=== PATIENT | female | born 1940 | race Caucasian/White ===

== ENCOUNTER 2024-09-10 13:06 | Outpatient (AMB) | payer MEDICARE, SELFPAY ==
--- NOTE | 2024-09-10 13:14 | A.OFFPC_ITS ---
Vital Signs 09/10/24 13:23 Height 5 ft 4.17 in Weight 145 lb 2 oz BMI 24.8 BP 128/80 Blood Pressure Location Lt brachial Respiration 14 Pulse 94 Pulse Source Pulse Oximeter Pulse Oximetry (%) 97 Oxygen Delivery Method Room Air Intake Visit Reasons: MEDICAL BILLER/CODER // Establish Care Intake Note: New patient visit Stack Matcher Required: No Allergies No Known Allergies Allergy (Verified 09/10/24 13:17) Tobacco use date assessed: 09/10/24 Last assessed Fall Risk: 09/10/24 Dental Screening Dental Screen Date: 09/10/24 Did you have a dental visit in the last 12 months?: Yes Did you have a dental problem in the last 6 months where you did not have access to dental care?: No Was dental information given to patient?: Patient has dentist HPI HPI Comments History of Present Illness Details The patient is an 84 year old female with a past medical history of OA of bilateral knees, elevated BP, history of cataracts presenting to establish [facility]. Transferring from [facility] Goes to bed about 930/10. Sleeps 7-9 hours. Usually getting up around 2pm to urinate. She tells me that it is a fairly voluminous urine and then she has to urinate again around 6 or 7am. She stops drinking at 5pm. Denies h/o dysuria. Did wake up with slight urinary discomfort yesterday morning-more of an urgency than pain OA: Stable on tylenol prn No longer doing mammo, colonoscopy ROS CONSTITUTIONAL: Denies weight loss, fever and chills. HEENT: Denies changes in vision and hearing. RESPIRATORY: Denies SOB and cough. CV: Denies palpitations and CP GI: Denies abdominal pain, nausea, vomiting and diarrhea. : Denies dysuria and urinary frequency. MSK: Denies new myalgia and joint pain. SKIN: Denies rash and pruritus. NEUROLOGICAL: Denies headache PSYCHIATRIC: Denies recent changes in mood. PHYSICAL EXAM: GENERAL: Alert and oriented x 3. NAD EYES: EOMI. Anicteric. HENT: Moist mucous membranes. No scleral icterus. No cervical lymphadenopathy. LUNGS: Clear to auscultation bilaterally. CARDIOVASCULAR: Regular rate and rhythm. + murmur. PVCs No JVD. ABDOMEN: Soft, non-tender +bs EXTREMITIES: No edema. Non-tender. SKIN: No rashes or lesions. Warm. NEUROLOGIC: No focal neurological deficits. CN II-XII grossly intact PSYCHIATRIC: Cooperative. Appropriate mood and affect [facility] Surgical History No pertinent past surgical history Family History Mother HTN (hypertension) Brother Obesity Diabetes Social History [facility]: [facility] Patient Tobacco Use Status: Former Tobacco user Years Smoked: unknown e-Cigarette/Vaping Use: Never Used Second Hand Smoke Exposure: No service: No Current occupational status: retired Cognitive needs: No Hearing needs: Yes (Some hearing loss) Vision needs: No Questionnaire PHQ-9 Over the last 2 weeks, how often have you been bothered by any of the following problems? 1. Little interest or pleasure in doing things: not at all 2. Feeling down, depressed, or hopeless: not at all 3. Trouble falling or staying asleep, or sleeping too much: not at all 4. Feeling tired or having little energy: not at all 5. Poor appetite or overeating: not at all 6. Feeling bad about yourself - or that you are a failure or have let yourself or your family down: not at all 7. Trouble concentrating on things, such as reading the newspaper or watching television: not at all 8. Moving or speaking so slowly that other people could have noticed. Or the opposite - being so fidgety or restless that you have been moving around a lot more than usual: not at all 9. Thoughts that you would be better off or of hurting yourself in some way: not at all Total score: 0 Depression Screening Interpretation: Negative Depression Screening Done: Yes 35986 - PHQ-9 Billing: Yes Source: Developed by Drs. Tony Chavez, Xiomara Castillo, Gerhard Brand and colleagues, with an educational pablo from [employer]. Thrive Questionnaire Date Thrive assessed: 09/03/24 I am a: Patient What is your living situation today?: I have a steady place to live Within the past 12 months, did the food you bought not last and you didn't have the money to get more?: Never true Within the past 12 months, did you worry whether your food would run out before you got money to buy more?: Never true Do you have trouble paying for medicines?: No Do you have trouble getting transportation to medical appointments?: No Do you have trouble paying your heating and electricity bill?: No Do you have trouble taking care of your child, family member or friend?: No Do you have trouble with day-to-day activities such as bathing, preparing meals, shopping, managing finances, etc.?: No Are you currently unemployed and looking for a job?: No Are you interested in more education?: Yes Please select the resources that you would like help with: None Currently or been in a relationship where the following occur: No concerns reported THRIVE Score: 0 AUDIT C Alcohol Use Questionnaire (AUDIT-C) 1. How often do you have a drink containing alcohol?: Never 2. How many drinks containing alcohol do you have on a typical day when you are drinking?: 1 or 2 3. How often do you have six or more drinks on one occasion?: Never Total Score: 0 GUS-7 AMB Questionnaire GUS-7 Feeling nervous, anxious, or on edge: 0 = Not at all Not being able to stop or control worryin = Not at all Worrying too much about different things: 0 = Not at all Trouble relaxin = Not at all Being so restless that it is hard to sit still: 0 = Not at all Becoming easily annoyed or irritable: 0 = Not at all Feeling afraid as if something awful might happen: 0 = Not at all Total GUS-7 score (0-4 normal; 5-9 mild; 10-14 moderate; 15-21 severe): 0 Source: Developed by Drs. Tony Chavez, Xiomara Castillo, Gerhard Brand and colleagues, with an educational pablo from [employer]. Physical exam (Primary Care) Vital Signs: Last Vital Signs Pulse 94 09/10/24 13:23 Resp 14 09/10/24 13:23 BP 128/80 09/10/24 13:23 Pulse Ox 97 09/10/24 13:23 Oxygen Delivery Method Room Air 09/10/24 13:23 BMI result Body Mass Index 24.8 Tobacco/Smoking Status: Tobacco use Status Tobacco use date assessed 09/10/24 09/10/24 13:23 Patient Tobacco Use Status Former Tobacco user 09/10/24 13:23 e-Cigarette/Vaping Use Never Used 09/10/24 13:23 PHQ-9: PHQ-9 Score PHQ-9: Total score 0 09/10/24 13:31 Depression Screening Interpretation: Negative Thrive Assessment: Date of Thrive Assessment Date Thrive assessed 09/03/24 09/10/24 13:23 Currently or been in a relationship where the following occur: No concerns reported Coding Level of Care Code New Pt Level 5 (22942) Complex EM visit Add On G2211 Diagnoses Encounter to establish care Z76.89 Heart murmur R01.1 Overactive bladder N32.81 Additional Codes PHQ-9 - 11968 - PHQ-9 Billing: Yes ([id number]) Time Spent (min) 70 Assessment & Plan Assessment & Plan (1) Encounter to establish care: Code(s): Z76.89 - Persons encountering health services in other specified circumstances Category: Medical Plan: 84 y/o to establish care. Past medical, surgical, social and family history reviewed. (2) Heart murmur: Code(s): R01.1 - Cardiac murmur, unspecified Category: Medical Plan: New per patient. Baseline echo ordered EKG performed-PACs No cardiac symptoms (3) Overactive bladder: Code(s): N32.81 - Overactive bladder Category: Medical Plan: Trial myrbetriq. consider urogynecology. For new urgency-UA/UC Orders: Orders Complete Blood Count Auto Diff 09/10/24 N32.81 - Overactive bladder, Z13.0 - Encounter for screening for diseases of the blood and blood-forming organs and certain disorders involving the immune mechanism, Z13.220 - Encounter for scree shaji for lipoid disorders, Z13.228 - Encounter for screening for other metabolic disorders Comprehensive Met. Panel 09/10/24 N32.81 - Overactive bladder, Z13.0 - Encounter for screening for diseases of the blood and blood-forming organs and certain disorders involving the immune mechanism, Z13.220 - Encounter for screening for lipoid disorders, Z13.228 - Encounter for screening for other metabolic disorders CA echo transthoracic complete 09/10/24 R01.1 - Cardiac murmur, unspecified UA CC w/rflx Micro + Cult 09/10/24 N32.81 - Overactive bladder, Z13.0 - Encounter for screening for diseases of the blood and blood-forming organs and certain disorders involving the immune mechanism, Z13.220 - Encounter for screening for lipoid disorders, Z13.228 - Encounter for screening for other metabolic disorders Lipid Panel 09/10/24 N32.81 - Overactive bladder, Z13.0 - Encounter for screening for diseases of the blood and blood-forming organs and certain disorders involving the immune mechanism, Z13.220 - Encounter for screening for lipoid disorders, Z13.228 - Encounter for screening for other metabolic disorders Hemoglobin A1c 09/10/24 N32.81 - Overactive bladder, Z13.0 - Encounter for screening for diseases of the blood and blood-forming organs and certain di sorders involving the immune mechanism, Z13.220 - Encounter for screening for lipoid disorders, Z13.228 - Encounter for screening for other metabolic disorders Medications: New Myrbetriq ER (mirabegron) 25 mg PO DAILY 90 tabs 3RF NS
[2024-09-10 13:23] VITALS: BP 128/80; PULSE 94; RESP 14; O2SAT 97; BMI 24.8
== END 2024-09-10 14:38 | disposition home or self-care (01) ==
PROVIDERS: PCP Internal Medicine; Visit Provider Internal Medicine
DX: R01.1 Cardiac murmur, unspecified (principal); N32.81 Overactive bladder; Z76.89 Persons encountering health services in other specified circumstances

== ENCOUNTER 2024-09-10 14:43 | Outpatient (REF) | payer MEDICARE, SELFPAY ==
[2024-09-10 17:49] LABS: MANUAL DIFF FLAG NO
[2024-09-10 17:50] LABS: Appearance Urine Cloudy; Color Urine Yellow; Glucose Urine UA Negative (Negative); Leukocyte Esterase Urine Moderate (2+) (Negative); Nitrite Urine Negative (Negative); PH 5.5 (5.0-9.0); UMIC TRIGGER UACC YES; Urine Blood Large (3+) (Negative); Urine Ketones Trace mg/dL (Negative); Urine Protein 30 (1+) mg/dL (Neg-Trace)
[2024-09-10 17:56] LABS: Bacteria Urine None Seen (None Seen); Hyaline Casts Urine 0-2 /LPF (0-2); RBC Urine >20 /HPF (0-2); Squamous Epithelial Cell Urine 0-2 /HPF (0-2); UACC Culture Trigger YES; WBC Urine >50 /HPF (0-5)
[2024-09-10 18:06] LABS: Basophils Absolute Auto 0.1 X10*3/uL (0.0-0.2); Basophils Percent Auto 0.6 % (0-2); Eosinophils Absolute Auto 0.1 X10*3/uL (0.0-0.4); Eosinophils Percent Auto 0.8 % (0-4); Hematocrit 38.4 % (37.0-47.0); Hemoglobin 13.1 g/dl (12.0-16.0); Imm Gran Abs Auto 0.03 X10*3/uL (0.00-0.03); Imm Gran Pct Auto 0.3 % (0.0-0.4); Lymphocytes Absolute Auto 1.1 X10*3/uL (1.2-4.9); Lymphocytes Percent Auto 10.1 % (20-40); Mean Corpuscular HGB Conc 34.1 g/dl (31.0-35.0); Mean Corpuscular Hemoglobin 31.4 pg (27.0-33.0); Mean Corpuscular Volume 92.1 fL (80.0-98.0); Mean Platelet Volume 11.7 fL (9.4-12.3); Monocytes Absolute Auto 0.5 X10*3/uL (0.1-1.2); Monocytes Percent Auto 5.1 % (2-11); Neutrophils Absolute Auto 8.6 x10*3/uL (2.0-8.3); Neutrophils Percent Auto 83.1 % (45-73); Platelet Count 275 X10*3/uL (160-400); Red Blood Count 4.17 X10*6/uL (4.20-5.50); Red Cell Distribution Width 14.4 % (11.0-16.0); White Blood Count 10.4 X10*3/uL (4.8-10.8)
[2024-09-10 18:19] LABS: Estimated Average Glucose 105 mg/dL; Hemoglobin A1C 117.0805 umol/L; Hemoglobin A1c % 5.3 % (<6.0); Total Hemoglobin (HGBA1C) 3453.3481 umol/L
[2024-09-10 18:20] LABS: Alanine Aminotransferase 38 U/L (0-31); Albumin Level 4.2 g/dL (3.5-5.0); Alkaline Phosphatase 96 U/L (39-117); Anion Gap 17 (12-20); Aspartate Amino Transferase 53 U/L (5-31); Bilirubin Total 0.7 mg/dL (0.0-1.0); Blood Urea Nitrogen 22 mg/dL (9-16); Calcium 9.5 mg/dL (8.4-10.2); Carbon Dioxide 25 mmol/L (22-29); Chloride 98 mmol/L (96-108); Cholesterol 191 mg/dL (<200); Estimated Glomerular Filt Rate 55; Glucose Random 95 mg/dL (60-115); HDL Cholesterol 83 mg/dL (>40); LDL Cholesterol Calculated 87 mg/dL (<100); Potassium 4.7 mmol/L (3.3-5.1); Sodium 135 mmol/L (135-145); Total Protein 7.9 g/dL (6.5-8.0); Triglycerides 108 mg/dL (<150)
== END 2024-09-10 14:44 | disposition home or self-care (01) ==
LOC: HO.WFDLDS 14:43
PROVIDERS: Visit Provider Internal Medicine
DX: Z13.228 Encounter for screening for other metabolic disorders (principal); Z13.0 Encounter for screening for diseases of the blood and blood-forming organs and certain disorders involving the immune mechanism; Z13.220 Encounter for screening for lipoid disorders; N32.81 Overactive bladder; Z13.1 Encounter for screening for diabetes mellitus
CPT/HCPCS: 36415; 80053; 80061; 81001; 83036; 85025; 87086; 96127; 99202

== ENCOUNTER 2024-09-16 11:42 | Outpatient (AMB) | payer MEDICARE, SELFPAY ==
--- NOTE | 2024-09-16 12:01 | A.OFFPC_ITS ---
Intake Visit Reasons: discuss results and ekg Allergies No Known Allergies Allergy (Verified 09/10/24 13:17) Tobacco use date assessed: 09/10/24 Dental Screening Dental Screen Date: 09/10/24 HPI HPI Comments History of Present Illness Details The patient is an 84 year old female with a past medical history of OA of bilateral knees, elevated BP, history of cataracts presenting to [facility]. Transferring from [facility] Goes to bed about 930/10. Sleeps 7-9 hours. Usually getting up around 2pm to urinate. She tells me that it is a fairly voluminous urine and then she has to urinate again around 6 or 7am. She stops drinking at 5pm. Denies h/o dysuria. Did wake up with slight urinary discomfort yesterday morning-more of an urgency than pain. Patient was prescribed trial myrbetriq but decided she did not want to try it. Her ua was +for blood. She has been referred to urology. Urine culture was negative. She had a murmur on exam. She has echocardiogram ordered. She had EKG in the office for ?afib but was PACs OA: Stable on tylenol prn No longer doing mammo, colonoscopy ROS see HPI PHYSICAL EXAM: telehealth [facility] Surgical History No pertinent past surgical history Family History Mother HTN (hypertension) Brother Obesity Diabetes Social History Housing: Condominium Patient Tobacco Use Status: Former Tobacco user Years Smoked: unknown e-Cigarette/Vaping Use: Never Used Second Hand Smoke Exposure: No service: No Current occupational status: retired Cognitive needs: No Hearing needs: Yes (Some hearing loss) Vision needs: No Questionnaire Thrive Questionnaire Date Thrive assessed: 09/03/24 Physical exam (Primary Care) Tobacco/Smoking Status: Tobacco use Status Tobacco use date assessed 09/10/24 09/10/24 13:23 Patient Tobacco Use Status Former Tobacco user 09/10/24 13:23 e-Cigarette/Vaping Use Never Used 09/10/24 13:23 Thrive Assessment: Date of Thrive Assessment Date Thrive assessed 09/03/24 09/10/24 13:23 Telehealth Telehealth Telehealth Platform: [facility] Location of provider rendering services: practice address Location of patient: address on file Patient Identification confirmed using: Name, : Yes Telehealth method: voice only Patient verbally consented to treatment: Yes Patient verbally consented to billing insurance company: Yes Patient informed of any privacy concerns related to visit: Yes Minutes spent on Phone/Video with Pt.: 32 Coding Level of Care Code Tele Est Pt Level 4 (14944) Diagnoses Heart murmur R01.1 Microscopic hematuria R31.29 Assessment & Plan Assessment & Plan (1) Heart murmur: Code(s): R01.1 - Cardiac murmur, unspecified Category: Medical Plan: Echocardiogram pending. No cardiac symptoms (2) Microscopic hematuria: Code(s): R31.29 - Other microscopic hematuria Category: Medical Plan: referral to urology pending
== END 2024-09-16 13:25 | disposition home or self-care (01) ==
LOC: HO.HMCFM 11:42
PROVIDERS: PCP Internal Medicine; Visit Provider Internal Medicine
DX: R01.1 Cardiac murmur, unspecified (principal); R31.29 Other microscopic hematuria

== ENCOUNTER → 2024-09-16 11:42 | Outpatient (BNVA) | payer MEDICARE, SELFPAY | PROVIDERS: PCP Internal Medicine; Visit Provider Internal Medicine ==

== ENCOUNTER → 2024-10-02 10:52 | Outpatient (REF) | payer MEDICARE, SELFPAY ==
--- NOTE | 2024-10-02 10:57 | CA_ITS ---
Transthoracic Echocardiogram Patient (Last, First, Middle): Leah Esteban R Gender: Female Date of : 1940 Age: 84 Procedure Date: 10/02/2024 Procedure Type: Transthoracic Echocardiogram Location: OP Height: 162.56 cm Weight: 62.14 kg BSA: 1.67 m2 Heart Rate: bpm BP: 170 / 110 mmHg Machine Operator Packaging: TO Referring MD: Faiza Aguirre MD Symptoms: R01.1 - Cardiac murmur, unspecified Study Quality: Adequate ECG Rhythm: Sinus Conclusions: - The left ventricular systolic function is normal. The calculated ejection fraction is 55% by biplane method. - No obvious valvular pathology seen on this study. Findings Left Ventricle Normal left ventricular cavity size. The left ventricular systolic function is normal. The calculated ejection fraction is 55% by biplane method. There is no evidence of regional wall motion abnormalities. Diastolic function is normal for age. There is mild septal asymmetric hypertrophy. Right Ventricle Normal right ventricular cavity size and systolic function. Atria The left atrium is mildly dilated. The right atrium is normal in size. Aortic Valve There is a normal trileaflet aortic valve. There is mild calcification of the aortic valve. There is no aortic valve stenosis. There is trace (trivial) aortic valve regurgitation. Mitral Valve The mitral valve appears normal. There is trace mitral valve regurgitation. There is no mitral valve stenosis. Pulmonic Valve The pulmonic valve is likely normal. Tricuspid Valve There is mild tricuspid valve regurgitation. There is no evidence of pulmonary hypertension. Great Vessels The asc aorta and aortic arch are normal in size. Venous The inferior vena cava is normal in size and collapses greater than 50% with inspiration. Pericardium/Pleural There is no evidence of pericardial effusion. Prior Study Comparison No prior study available for comparison. Recommendations, Care & Conclusions No obvious valvular pathology seen on this study. Measurements 2D Linear Measurements IVSd: 1.09 0.6-0.9/0.6-1.0 cm LVIDd: 3.92 3.9-5.3/4.2-5.9 cm LVIDd Index: 2.35 2.4-3.2/2.2-3.1 cm/m2 LVIDs: 2.65 2.0-3.6 cm LVPWd: 0.87 0.7-1.1 cm LA Diam: 3.00 2.7-3.8/3.0-4.0 cm LAIDs Index: 1.80 1.5-2.3 cm/m2 LV Mass: 148.24 67-162/88-224 g LV Mass Index: 88.77 43-95/49-115 g/m2 LVOT Diam: 2.00 3.0+(-)1.3 cm 2D Systolic Function EF 4C: 54.90 >55% EF 2C: 58.60 >55% EF BiP: 55.10 >55% Mitral Valve MV Pk E: 0.45 MV PK A: 0.48 MV Decel Time: 233.00 E/A: 0.90 E'Lateral: 5.98 E'Medial: 4.24 E/E' Med: 10.60 E/E' Lat: 7.50 PHT: 68.00 MVA PHT: 3.24 Decel Green: 1.92 Aortic Valve AoV Pk Angel: 1.41 AoV Mn Angel: 1.03 AoV VTI: 0.27 AoV Pk Grad: 8.00 Aov Mn Grad: 5.00 FABIO Cont.VTI: 1.89 LVOT LVOT Pk Angel: 0.83 LVOT Mn Agnel: 0.51 LVOT VTI: 0.16 LVOT Pk Grad: 3.00 LVOT Mn Grad: 1.00 LVOT Diam: 2.00 LVOT Area: 3.14 Diastolic Function MV Pk E: 0.45 MV Pk A: 0.48 E/A: 0.90 E'Medial: 4.24 E/E' Med: 10.60 E' Laterial: 5.98 E/E' Lat: 7.50 Right Ventricle TAPSE (mm): 23.60 TVS' Angel: 10.30 Tricuspid Valve TR Pk Angel: 1.86 TR Pk Grad: 14.00 RA Press: 3.00 RVSP: 17.00 Great Vessels Aorta Sinus of Valsalva: 3.39 2.0-3.5 cm Ao Asc: 3.40 2.1-3.4 cm Ao Arch: 2.70 Updated in Other Vendor System with Status of Final Tristen Willard MD electronically signed on 10/02/2024 4:11:58 PM with status of Final
== END ==
LOC: HO.CARD 10:52
PROVIDERS: PCP Internal Medicine; Visit Provider Internal Medicine
DX: R01.1 Cardiac murmur, unspecified (principal)
CPT/HCPCS: 93306

== ENCOUNTER → 2024-10-02 10:57 | Outpatient (BNV) | payer MEDICARE, SELFPAY | PROVIDERS: PCP Internal Medicine; Visit Provider Internal Medicine | DX: I42.2 Other hypertrophic cardiomyopathy (principal); I35.8 Other nonrheumatic aortic valve disorders; I36.1 Nonrheumatic tricuspid (valve) insufficiency | CPT/HCPCS: 93306 ==

== ENCOUNTER 2025-06-02 11:56 | Outpatient (AMB) | payer MEDICARE, SELFPAY ==
--- NOTE | 2025-06-02 11:59 | MHC.PC.OV ---
Vital Signs 06/02/25 12:04 06/02/25 12:09 Weight 137 lb 2 oz BP 186/90 H 178/86 H Blood Pressure Location Rt brachial Rt brachial Position Sitting Sitting Respiration 18 Pulse 69 Pulse Source Pulse Oximeter Temp 97.5 F Temp Source Oral Pulse Oximetry (%) 94 Oxygen Delivery Method Room Air Intake Visit Reasons: pe Intake Note: pe Assurance Analyst Required: No Allergies No Known Allergies Allergy (Verified 06/02/25 12:02) Tobacco use date assessed: 06/02/25 Fall risk assessment: No Falls in past year Last assessed Fall Risk: 06/02/25 Dental Screening Dental Screen Date: 06/02/25 Did you have a dental visit in the last 12 months?: Yes Did you have a dental problem in the last 6 months where you did not have access to dental care?: Yes Was dental information given to patient?: Patient has dentist HPI HPI Comments History of Present Illness Details The patient is an 85 year old female with a past medical history of OA of bilateral knees, elevated BP, history of cataracts presenting for CPE Urology: Goes to bed about 930/10. Sleeps 7-9 hours. Usually getting up around 2pm to urinate. She tells me that it is a fairly voluminous urine and then she has to urinate again around 6 or 7am. She stops drinking at 5pm. Denies h/o dysuria. Did wake up with slight urinary discomfort yesterday morning-more of an urgency than pain. Patient was prescribed trial myrbetriq but decided she did not want to try it. Her ua was +for blood. She was referred to urology. Urine culture was negative. CV: She had a murmur on exam. Echo was performed 09/2024 The left ventricular systolic function is normal. The calculated ejection fraction is 55% by biplane method. - No obvious valvular pathology seen on this study. OA: Stable on tylenol prn No longer doing mammo, colonoscopy ROS see HPI PHYSICAL EXAM: GENERAL: Alert and oriented x 3. NAD EYES: EOMI. Anicteric. HENT: Moist mucous membranes. No scleral icterus. No cervical lymphadenopathy. LUNGS: Clear to auscultation bilaterally. CARDIOVASCULAR: Regular rate and rhythm. Soft murmur. No JVD. ABDOMEN: Soft, non-tender +bs EXTREMITIES: No edema. Non-tender. SKIN: No rashes or lesions. Warm. NEUROLOGIC: No focal neurological deficits. CN II-XII grossly intact PSYCHIATRIC: Cooperative. Appropriate mood and affect [facility] Surgical History No pertinent past surgical history Family History Mother HTN (hypertension) Brother Obesity Diabetes Social History Housing: Condominium Alcohol intake: former Patient Tobacco Use Status: Former Tobacco user Years Smoked: unknown e-Cigarette/Vaping Use: Never Used Second Hand Smoke Exposure: No service: No Current occupational status: retired Cognitive needs: No Hearing needs: Yes (Some hearing loss) Vision needs: No Questionnaire Thrive Questionnaire Date Thrive assessed: 09/03/24 I am a: Patient What is your living situation today?: I have a steady place to live Within the past 12 months, did the food you bought not last and you didn't have the money to get more?: Never true Within the past 12 months, did you worry whether your food would run out before you got money to buy more?: Never true Do you have trouble paying for medicines?: No Do you have trouble getting transportation to medical appointments?: No Do you have trouble paying your heating and electricity bill?: No Do you have trouble taking care of your child, family member or friend?: No Do you have trouble with day-to-day activities such as bathing, preparing meals, shopping, managing finances, etc.?: No Are you currently unemployed and looking for a job?: No Are you interested in more education?: Yes Please select the resources that you would like help with: None Currently or been in a relationship where the following occur: No concerns reported THRIVE Score: 0 AUDIT C Alcohol Use Questionnaire (AUDIT-C) 1. How often do you have a drink containing alcohol?: Never (former) 3. How often do you have six or more drinks on one occasion?: Never Total Score: 0 Physical exam (Primary Care) Vital Signs: Last Vital Signs Temp 97.5 F 06/02/25 12:04 Pulse 69 06/02/25 12:04 Resp 18 06/02/25 12:04 BP 178/86 H 06/02/25 12:09 Pulse Ox 94 06/02/25 12:04 Oxygen Delivery Method Room Air 06/02/25 12:04 Tobacco/Smoking Status: Tobacco use Status Tobacco use date assessed 06/02/25 06/02/25 12:07 Patient Tobacco Use Status Former Tobacco user 06/02/25 12:04 e-Cigarette/Vaping Use Never Used 06/02/25 12:04 Thrive Assessment: Date of Thrive Assessment Date Thrive assessed 09/03/24 06/02/25 12:02 Currently or been in a relationship where the following occur: No concerns reported Coding Level of Care Code Est Pt Prev Care >65y(53688) Diagnoses Physical exam Z00.00 Heart murmur R01.1 Screening for metabolic disorder Z13.228 Screening for hyperlipidemia Z13.220 Overactive bladder N32.81 Assessment & Plan Assessment & Plan (1) Physical exam: Code(s): Z00.00 - Encounter for general adult medical examination without abnormal findings (2) Heart murmur: Code(s): R01.1 - Cardiac murmur, unspecified Category: Medical (3) Screening for metabolic disorder: Code(s): Z13.228 - Encounter for screening for other metabolic disorders Category: Medical (4) Screening for hyperlipidemia: Code(s): Z13.220 - Encounter for screening for lipoid disorders Category: Medical (5) Overactive bladder: Code(s): N32.81 - Overactive bladder Category: Medical Plan 85 year old female presenting for CPE Interval history reviewed Preventive measures for age discussed OAB-declined myrbetriq, check urine MSK-stable Orders: Orders Lipid Panel 06/02/25 E55.9 - Vitamin D deficiency, unspecified, R01.1 - Cardiac murmur, unspecified, Z13.0 - Encounter for screening for diseases of the blood and blood-forming organs and certain disorders involving the immune mechanism, Z13.220 - Encounter for screening for lipoid disorders, Z13.228 - Encounter for screening for other metabolic disorders AMB Urinalysis Automated 06/02/25 E55.9 - Vitamin D deficiency, unspecified, R01.1 - Cardiac murmur, unspecified, Z13.0 - Encounter for screening for diseases of the blood and blood-forming organs and certain disorders involving the immune mechanism, Z13.220 - Encounter for screening for lipoid disorders, Z13.228 - Encounter for screening for other metabolic disorders, Z13.9 - Encounter for screening, unspecified Urine Culture 06/02/25 E55.9 - Vitamin D deficiency, unspecified, R01.1 - Cardiac murmur, unspecified, Z13.0 - Encounter for screening for diseases of the blood and blood-forming organs and certain disorders involving the immune mechanism, Z13.220 - Encounter for screening for lipoid disorders, Z13.228 - Encounter for screening for other metabolic disorders Complete Blood Count Auto Diff 06/02/25 E55.9 - Vitamin D deficiency, unspecified, R01.1 - Cardiac murmur, unspecified, Z13.0 - Encounter for screening for diseases of the blood and blood-forming organs and certain disorders involving the immune mechanism, Z13.220 - Encounter for screening for lipoid disorders, Z13.228 - Encounter for screening for other metabolic disorders Comprehensive Met. Panel 06/02/25 E55.9 - Vitamin D deficiency, unspecified, R01.1 - Cardiac murmur, unspecified, Z13.0 - Encounter for screening for diseases of the blood and blood-forming organs and certain disorders involving the immune mechanism, Z13.220 - Encounter for screening for lipoid disorders, Z13.228 - Encounter for screening for other metabolic disorders Medications: New cholecalciferol (vitamin D3) 25 mcg PO DAILY 90 caps 3RF Discontinued Myrbetriq ER (mirabegron) Discontinued Reason: Doctor's Order 25 mg PO DAILY 90 tabs 3RF NS nitrofurantoin macrocrystal must administer with a meal/food Discontinued Reason: Duplicate 100 mg PO BID 14 caps 0RF
[2025-06-02 12:04] VITALS: BP 186/90; PULSE 69; RESP 18; TEMP 36.4; O2SAT 94
[2025-06-02 12:09] VITALS: BP 178/86
--- OUTSIDE RECORDS SUMMARY | 2025-06-02 15:25 | XMS_ITS | Clinical Summary ---
Author Organization [facility] Address [address] [place] [address] Phone Care Team Providers Care Roller Skate Assembler Name Role Phone Pcp, Unknown Primary Care Provider Unavailabl e Social History Tobacco Use Types Packs/Day Years Used Date Smoking Tobacco: Never Assessed Education Answer Date Recorded Are you interested in more education? Not on alure e 01/17/2024 Are you concerned about learning? Not on file 01/17/2024 No 01/17/2024 No 01/17/2024 Digital Access Answer Date Recorded No 01/17/2024 No 01/17/2024 Reliable internet access at home? Not on file 01/17/2024 Device with a working camera? Not on file Comments Unknown Sex and Gender Information Value Date Recorded Sex Assigned at Not on file Legal Sex Female 3:33 PM EDT Gender Identity Not on file Sexual Orientation Not on file Plan of Treatment Not on file Medical Devices Not on file Insurance MEDICARE PART A & B [employer] MEDEX SUPPLEMENT MEDICARE PART A & B [employer] MEDEX SUPPLEMENT MEDICARE PART A & B [employer] MED[employer] SUPPLEMENT MEDICARE PART A & B [employer] MED[employer] SUPPLEMENT MEDICARE PART A & B [employer]UE [employer] MEDEX SUPPLEMENT MEDICARE PART A & B [employer] MEDEX SUPPLEMENT Care Teams Roller Skate Assembler Relationship Specialty Start Date End Date Pcp, Unknown PCP - General 01/17/24 Additional Source Comments The information contained in this document represents components of the legal health record. It is not the complete legal health record.[facility]
== END 2025-06-02 12:36 | disposition home or self-care (01) ==
LOC: HO.HMCFM 11:57
PROVIDERS: PCP Internal Medicine; Visit Provider Internal Medicine
DX: R01.1 Cardiac murmur, unspecified (principal); N32.81 Overactive bladder; E55.9 Vitamin D deficiency, unspecified

== ENCOUNTER 2025-06-02 11:56 | Outpatient (REF) | payer MEDICARE, SELFPAY ==
--- OUTSIDE RECORDS SUMMARY | 2025-06-02 17:42 | XMS_ITS | Data Portability ---
Author Organization [place] - [facility], Allergy Address [address] [address] Assessment Encounter Date Assessment Date Assessment LastModified by Organization Details LastModified Time 03/24/2025 03/24/2025 The patient demonstrates fluctuating hearing loss in the right ear, which appears to be nerve-related rather than pressure-related . Audiometric testing reveals stable hearing compared to last year, with significant loss in high tones and mild loss in low tones. The patient is a strong candidate for hearing aids, with high word recognition scores (84-92%). Hearing aids are recommended to improve auditory function, particularly in challenging environments such as loud restaurants. The patient reports nasal symptoms consistent with vasomotor rhinitis, including mucus formation, nasal drainage, and running nose triggered by environmental factors such as air conditioning and eating. Atrovent nasal spray was previously prescribed but was ineffective and caused an increase in resting heart rate. Saline solution and hydration are recommended for symptom management. Surgical options to freeze the nerve were discussed but deferred by the patient. The patient was educated on the differences between hearing aids available at this facility and those sold at [facility], including technological advancements and professional fitting by a doctor of audiology. The patient expressed understanding and satisfaction with the explanation provided. I also offered to perform a fiberoptic laryngoscopy and look down the back of her throat for any obstruction. She declined Procedure Documentation: Earwax removal performed on both ears. [email or web address] Not available 03/24/2025 16:51:19 Plan of Treatment Reminders Order Date Submit Date Provider Last Modified By Organization Details Last Modified Time Details Appointments None record ed. Lab None record ed. Referral None record ed. Procedures None record ed. Surgeries None record ed. Imaging None record ed. Medication Orders None record ed. Patient TargetsNo targets recorded. Patient Instructions Encounter Date Encounter Id Patient Instructions Last Modified By Organization Details Last Modified Time 03/24/2025 [id number] Use saline solution and maintain hydration to manage nasal symptoms. Consider hearing aids to improve auditory function. Follow up if nasal symptoms persist or worsen. [email or web address] Not available 03/24/2025 16:00:13 Please note: Parts of this encounter note have been generated by AI based on audio conversation. Patient consent was required prior to utilizing this technology. Content review was required prior to finalizing the note. [email or web address] Not available 03/24/2025 16:00:13 Reason for Referral None Reported. Results Created Date Observation Date Name Description Value Unit Range Abnormal Flag Note LastModifiedBy Organization Detail LastModifiedTime 03/24/20 25 audio gram No observ ation record ed. BARCODE Not Available 2024 17:20:26 Result Notes None recorded. Problems Name Problem SNOMED Code Status Onset Date Resolution Date Notes Provider Name and Address Organization Details Recorded Time Sensorine ural hearing loss of bilateral ears 120575158 Active 2016 Sensorine ural hearing loss, bilateral ; Note: Date Diagnosed : 04/20/2017 10:44 AM (H90.3) Not Available [facility] 4 03:23:15 Bilateral disorder of Eustachia n tubes 40495110799 94517 Active 2016 Other specified disorders of Eustachia n tube, bilateral ; Note: Date Diagnosed : 04/20/2017 11:11 AM (H69.83) Not Available [facility] 4 03:23:15 Posterior rhinorrhe a 78950985 Active 2018 Postnasal drip; Note: Date Diagnosed : 01/02/2019 2:23 PM (R09.82) Not Available [facility] 4 03:23:15 Chronic rhinitis 06180188 Active 2018 Chronic rhinitis; Note: Date Diagnosed : 01/02/2019 2:29 PM (J31.0) Not Available [facility] 4 03:23:15 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 2024 LISA HAHN MD [address] [place] [address], [place], [address] , [place] - [facility] 5 15:03:36 Deviated nasal septum 416648786 Active 2024 LISA HAHN MD 100 [facility],[place] [address], [place], [address] , [place] - [facility] 5 15:03:40 Impacted cerumen in right ear 12178433198 31150 Active 2024 LISA HAHN MD 100 [facility],[place] [address], [place], [address] , [facility] - [facility] [place] 5 15:03:45 Sensorine ural hearing loss of bilateral ears 541538491 Active 2024 LISA HAHN MD 100 [facility],[place] [address], [place], [address] , [place] - [facility] 15:03:59 Problem Notes None recorded. Procedures Surgical History Date Name Laterality Status Provider Name and Address Organization Details Recorded Time 03/24/2025 Air & Speech Audio with Tymps - 27534, 18075 & 17791 completed NABEEL CARBAJAL [address] [facility],[place] [address], [place], [address], [facility] 03/24/2025 15:32:20 Imaging Results None recorded. Procedure Notes None recorded. Medical Equipment None Reported. Allergies No known drug allergies Medications Name Sig Start Date Stop Date Status Note LastModified by Organization Details LastModified Time desonide 0.05 % topical cream APPLY TOPICALL Y TO AFFECTED AREAS TWICE DAILY FOR UP TO 10 TIMES A DAY 03/24 completed Not Available Not Available Not Available ketoconaz ole 2 % shampoo 03/24 completed Medicati on ID: [id number] D uration Value: 15 Brand Name: ketocona zole Dom luna Method: E-Prescr ibed Sub s Allowed: subs OK Speci al Instruct ion: LATHER INTO AFFECTED AREA WAIT 5 MINUTES THEN RINSE USE DAILY FOR FLAR ES 3 TIMES [facility] W[facility] nericNam e: ketocona zole Not Available Not Available Not Available triamcino lone acetonide 0.025 % topical cream APPLY TOPICALL Y TWICE DAILY X14 DAYS 03/24 completed Not Available Not Available Not Available erythromy thomas 5 mg/gram (0.5 %) eye ointment APPLY TO WOUND TWICE DAILY FOR 7 DAYS. 03/24 completed Not Available Not Available Not Available nitrofura ntoin macrocrys svitlana 100 mg capsule TAKE 1 CAPSULE BY MOUTH TWICE DAILY - MUST ADMINIST ER WITH A MEAL / FOOD 03/24 completed Not Available Not Available Not Available metronida zole 0.75 % topical cream 03/24 completed Medicati on ID: [id number] D uration Value: 20 Brand Name: metronid azole Se nd Method: E-Prescr ibed Sub s Allowed: subs OK Speci al Instruct ion: APPLY TO FACE IN THE MORNING AND EVENING Medicati onGeneri cName: metronid azole Not Available Not Available Not Available lisinopri l 5 mg tablet 03/24 completed Medicati on ID: [id number] D uration Value: 90 Brand Name: lisinopr il Send Method: E-Prescr ibed Sub s Allowed: subs OK Speci al Instruct ion: TK 1 T PO D Medica tionGene ricName: lisinopr il Not Available Not Available Not Available fluocinon jessica 0.05 % topical solution 10/02 completed Medicati on ID: [id number] D uration Value: 15 Brand Name: fluocino nide Sen d Method: E-Prescr ibed Sub s Allowed: subs OK Speci al Instruct ion: APPLY TO SCALP BID PRF ITCH Med icationG enericNa me: fluocino nide Not Available Not Available Not Available clobetaso l 0.05 % scalp solution APPLY TOPICALL Y TO THE AFFECTED AREA DAILY FOR UP TO 2 WEEKS 03/24 completed Not Available Not Available Not Available ipratropi um bromide 21 mcg (0.03 %) nasal spray USE 2 SPRAYS IN EACH NOSTRIL THREE TIMES DAILY DIRECTED 03/24 completed Not Available Not Available Not Available neomycin 3.5 mg/g-poly myxin B 10,000 unit/g-de xameth 0.1 % eye oint APPLY TOPICALL Y TO THE AFFECTED AREA TWICE DAILY X14 DAYS DIRECTED 03/24 completed Not Available Not Available Not Available Restasis 0.05 % eye drops in a dropperet te INSTILL 1 DROP IN EACH EYE TWICE DAILY active Not Available Not Available No t Available Suphedrin e PE 10 mg tablet 03/24 completed Medicati on ID: [id number] B rand Name: Suphedri ne PE Send Method: E-Prescr ibed Sub s Allowed: subs OK Medic ationGen ericName : Suphedri ne PE Not Available Not Available Not Available Vitals Date Recorded Body height Body mass index (BMI) Body weight Provider Name and Address Organization Details Last Updated DateTime 03/24/2025 162.56 cm 22.7 kg/m2 70625.19 g Tashia Eddy [place] - [facility] 03/24/2025 14:33:00 Social History None recorded. Functional Status None recorded. Mental Status None recorded. Family History Nothing Reported. Medical History No medical history recorded. Gynecological HistoryNo gynecological history recorded. Obstetrics History GPAL:G 0 P 0 0 0 0 Past Encounters Encounter ID Performer Location Encounter Start Date Encounter Closed Date Diagnosis/Indication Diagnosis SNOMED-CT Code Diagnosis ICD10 Code Diagnosis IMO Codes Diagnosis Note [id number] LISA HAHN MD [facility] [address] [address] 03/24/2025 13:47:36 03/24/2025 16:05:47 Vasomotor rhinitis 5960683 J30.0 239652 Deviated nasal septum 12 1088668 J34.2 620849 Impacted c erumen in right ear 3488954969 101038 H61.21 1363225 Sensorineu ral hearing loss of bilateral ears 141145002 H90.3 [id number] NABEEL CARBAJAL [facility] [address] [address] 03/24/2025 13:47:22 03/24/2025 16:06:46 Sensorineural hearing loss of bilateral ears 456099130 H90.3 [id number] Audiologic al evaluation results: Right ear: Mild sloping to severe sensorineu ral hearing loss with excellent word recognitio n. Left ear: Mild sloping to severe sensorineu ral hearing loss with very good word recognitio n. Tympanomet ry: Right Ear:Type A Left Ear:Type A Health Concerns Section Related Observation LastModified by Organization Detai ls LastModified Time None Recorded Concern Status LastModified by Organization Details LastModified Time None Recorded Advance Directives Directive None Recorded Payers Insurance Date Sequence Insurance Name Policy Number Policy Monreal Covered Member ID Monreal Member ID Guarantor Name 03/24/2025 2 [facility] [id number] Leah Esteban [id number] Leah Esteban 03/24/2025 1 [place] [employer] Leah Esteban [id number] Leah Esteban Notes Date Note Type Note Provider Name and Address Organization Details Recorded Time 03/24/2025 text/html Leah Esteban is an 85-year-old female who presents for evaluation of hearing and nasal symptoms. She reports experiencing fluctuating hearing loss in her right ear since January, with episodes of blockage and popping sensations. Her left ear has returned to normal function. She also describes significant mucus formation, particularly in the mornings, accompanied by nasal drainage and occasional running nose, which she attributes to environmental factors such as air conditioning. She previously tried Atrovent nasal spray, which was ineffective and caused an increase in her resting heart rate from 54 to approximately 70 bpm. She has been focusing on heart rate, blood pressure, and diet. She uses saline solution and drinks water to manage her nasal symptoms. She denies any recent illnesses and states she has been otherwise healthy. LISA RICHARDSON MD [address] [place] [address], [place], [address], [facility] 03/24/2025 16:51:42 OBGyn Episode No OBEpisode recorded.
[2025-06-02 17:52] LABS: MANUAL DIFF FLAG NO
[2025-06-02 18:10] LABS: Hematocrit 35.6 % (37.0-47.0); Hemoglobin 11.6 g/dl (12.0-16.0); Imm Gran Abs Auto 0.02 X10*3/uL (0.00-0.03); Imm Gran Pct Auto 0.3 % (0.0-0.4); Lymphocytes Absolute Auto 1.3 X10*3/uL (1.2-4.9); Mean Corpuscular HGB Conc 32.6 g/dl (31.0-35.0); Mean Corpuscular Hemoglobin 30.9 pg (27.0-33.0); Mean Corpuscular Volume 94.7 fL (80.0-98.0); NRBC Abs Auto 0.000 X10*3/uL (0.0-0.012); NRBC Pct Auto 0.0 /100WBC (0.0-0.2); Platelet Count 240 X10*3/uL (160-400); Red Blood Count 3.76 X10*6/uL (4.20-5.50); White Blood Count 6.4 X10*3/uL (4.8-10.8)
[2025-06-02 18:22] LABS: Alanine Aminotransferase 21 U/L (0-31); Albumin Level 4.0 g/dL (3.5-5.0); Alkaline Phosphatase 88 U/L (39-117); Anion Gap 11 (12-20); Aspartate Amino Transferase 37 U/L (5-31); Blood Urea Nitrogen 24 mg/dL (9-16); Calcium 8.8 mg/dL (8.4-10.2); Carbon Dioxide 27 mmol/L (22-29); Chloride 105 mmol/L (96-108); Cholesterol 205 mg/dL (<200); Estimated Glomerular Filt Rate > 60; HDL Cholesterol 83 mg/dL (>40); Potassium 4.2 mmol/L (3.3-5.1); Sodium 139 mmol/L (135-145); Total Protein 6.9 g/dL (6.5-8.0); Triglycerides 64 mg/dL (<150)
[2025-06-02 18:37] LABS: Appearance Urine Clear; Glucose Urine UA Negative (Negative); PH 5.5 (5.0-9.0); Specific Gravity - Urine 1.010 (1.005-1.025); UMIC TRIGGER UACC YES
[2025-06-02 20:30] LABS: UACC Culture Trigger YES
== END 2025-06-02 11:57 | disposition home or self-care (01) ==
LOC: HO.WFDLDS 11:56
PROVIDERS: PCP Internal Medicine; Visit Provider Internal Medicine
DX: Z13.220 Encounter for screening for lipoid disorders (principal); Z13.0 Encounter for screening for diseases of the blood and blood-forming organs and certain disorders involving the immune mechanism; Z00.00 Encounter for general adult medical examination without abnormal findings; Z13.228 Encounter for screening for other metabolic disorders; R01.1 Cardiac murmur, unspecified; E55.9 Vitamin D deficiency, unspecified; N32.81 Overactive bladder
CPT/HCPCS: 36415; 80053; 80061; 81001; 85025; 87086; 99212

== ENCOUNTER 2025-07-14 13:46 | Outpatient (REF) | payer MEDICARE, SELFPAY ==
[2025-07-14 18:59] LABS: Iron 64 mcg/dL (30-160); Percent Iron Saturation 25 % (15-50); Total Iron Binding Capacity 261 mcg/dL (228-428); Unsaturated Iron Binding 197 ug/dL
[2025-07-14 19:20] LABS: Folate 9.3 ng/mL (> or = 4.0); Vitamin B12 367 pg/mL (200-900)
--- OUTSIDE RECORDS SUMMARY | 2025-07-14 22:40 | XMS_ITS | Data Portability ---
Author Organization [place] - [facility], Allergy Address [address] [place] [address] Assessment Encounter Date Assessment Date Assessment LastModified [...] at this facility and those sold at [facility], including technological advancements and professional fitting by [...] Organization Details Last Modified Time Details Appointments [place] Initial Fitting 2024 01:00P NABEEL HAWKINS Not available Not available Not available Lab None recorded . Referral None recorded . Procedures None recorded . Surgeries None recorded . Imaging None recorded . Medication Orders None recorded . Patient TargetsNo targets recorded. Patient Instructions Encounter Date Encounter Id Patient Instructions Last Modified By Organization Details Last Modified Time 03/24/2025 [id number] Use saline solution and maintain hydration to manage nasal symptoms. Consider hearing aids to improve auditory function. Follow up if nasal symptoms persist or worsen. [email or web address] Not available 03/24/2025 16:00:13 Please note: Parts of this encounter note have been generated by AI based on audio conversation. Patient consent was required prior to utilizing this technology. Content review was required prior to finalizing the note. [email or web address] Not available 03/24/2025 16:00:13 Reason for Referral [...] Sensorine ural hearing loss of bilateral ears 995716701 Active 2016 Sensorine ural hearing loss, bilateral ; Note: Date Diagnosed : 04/20/2017 10:44 AM (H90.3) Not Available [facility] 4 03:23:15 Bilateral disorder of Eustachia n tubes 48183495040 11857 Active 2016 Other specified disorders of Eustachia n tube, bilateral ; Note: Date Diagnosed : 04/20/2017 11:11 AM (H69.83) Not Available [facility] 4 03:23:15 Posterior rhinorrhe a 65410932 Active 2018 Postnasal drip; Note: Date Diagnosed : 01/02/2019 2:23 PM (R09.82) Not Available [facility] 4 03:23:15 Chronic rhinitis 08442486 Active 2018 Chronic rhinitis; Note: Date Diagnosed : 01/02/2019 2:29 PM (J31.0) Not Available [facility] 4 03:23:15 Vasomotor rhinitis 1767486 Active 2024 LISA HAHN MD [address] [place] [address], [place], [address] , [facility] - [facility] [place] 5 15:03:36 Deviated nasal septum 507635210 Active 2024 LISA HAHN MD 100 [facility],[place] [address], [place], [place], [address] , [facility] - [facility] [place] 5 15:03:40 Impacted cerumen in right ear 85362679170 68628 Active 2024 LISA HAHN MD 100 [facility], [place], [address] , [facility] - [facility] [place] 5 15:03:45 Sensorine ural hearing loss of bilateral ears 841468718 Active 2024 LISA HAHN MD 100 [facility],[place] [address], [place], [address] , [facility] - [facility] 15:03:59 Problem Notes None recorded. Procedures Surgical History Date Name Laterality Status Provider Name and Address Organization Details Recorded Time 03/24/2025 Air & Speech Audio with Tymps - 14649, 34763 & 08394 completed NABEEL CARBAJAL [address] [facility],[place] [address], [place], [address], [facility] [place] 03/24/2025 15:32:20 Imaging Results None recorded. Procedure [...] % shampoo 03/24 completed Medicati on ID: [id number] D uration Value: 15 Brand Name: ketocona setph luna Method: E-Prescr ibed Sub s Allowed: subs OK Speci al Instruct ion: LATHER INTO AFFECTED AREA WAIT 5 MINUTES THEN RINSE USE DAILY FOR FLAR ES 3 TIMES A WEEK FOR MAINTENA NCE Medi cationGe nericNam e: ketocona zole Not Available Not [...] topical cream 03/24 completed Medicati on ID: [id number] D uration Value: 20 Brand Name: metronid azole Se nd Method: E-Prescr ibed Sub s Allowed: subs OK Speci al Instruct ion: APPLY TO FACE IN THE MORNING AND EVENING Medicati onGeneri cName: metronid azole Not Available Not Available Not Available lisinopri l 5 mg tablet 03/24 completed Medicati on ID: [id number] D uration Value: 90 Brand Name: lisinopr il Send Method: E-Prescr ibed Sub s Allowed: subs OK Speci al Instruct ion: TK 1 T PO D Medica tionGene ricName: lisinopr il Not Available Not Available Not Available fluocinon jessica 0.05 % topical solution 10/02 completed Medicati on ID: [id number] D uration Value: 15 Brand Name: fluocino [...] mg tablet 03/24 completed Medicati on ID: [id number] B rand Name: Gissel ne PE Send Method: E-Prescr ibed Sub s Allowed: subs OK Medic ationGen ericName : Suphedri ne PE Not Available Not Available Not Available Vitals Date Recorded Body height Body mass index (BMI) Body weight Provider Name and Address Organization Details Last Updated DateTime 03/24/2025 162.56 cm 22.7 kg/m2 29939.19 g Tashia Eddy [place] - [facility] 03/24/2025 14:33:00 Social History None recorded. Functional Status None recorded. Mental Status None recorded. Family History Nothing Reported. Medical History No medical history recorded. Gynecological HistoryNo gynecological history recorded. Obstetrics History GPAL:G 0 P 0 0 0 0 Past Encounters Encounter ID Performer Location Encounter Start Date Encounter Closed Date Diagnosis/Indication Diagnosis SNOMED-CT Code Diagnosis ICD10 Code Diagnosis IMO Codes Diagnosis Note [id number] LISA HAHN MD [facility] [address] [address] 03/24/2025 13:47:36 03/24/2025 16:05:47 Vasomotor rhinitis 8477546 J30.0 360062 Deviated nasal septum 12 5044635 J34.2 507785 Impacted c erumen in right ear 7298520764 702829 H61.21 3357425 Sensorineu ral hearing loss of bilateral ears 629805763 H90.3 [id number] NABEEL CARBAJAL [facility] [address] [address] 03/24/2025 13:47:22 03/24/2025 16:06:46 Sensorineural hearing loss of bilateral ears 234819211 H90.3 [id number] Audiologic al evaluation results: Right ear: Mild [...] Monreal Member ID Guarantor Name 03/24/2025 2 [facility] [id number] Leah Esteban [id number] 21 Leah Esteban 03/24/2025 1 [place]IC[place] B-[place] [employer] Leah Esteban [id number] Leah Esteban Notes Date Note Type [...] has been otherwise healthy. LISA RICHARDSON MD [address] [place] [address], [address], [facility] - [facility] 03/24/2025 16:51:42 OBGyn Episode No OBEpisode recorded.
--- OUTSIDE RECORDS SUMMARY | 2025-07-14 22:40 | XMS_ITS | Clinical Summary ---
Author Organization [facility] Address [address] [place] [address] Phone Care Team Providers Care Aging Room Operator Name Role Phone Pcp, Unknown Primary Care Provider Unavailabl e Social History Tobacco Use Types Packs/Day Years Used Date Smoking Tobacco: Never Assessed Education Answer Date Recorded Are you interested in more education? Not on laure e 01/17/2024 Are you concerned about learning? [...] file Insurance MEDICARE PART A & B [employer] MEDEX SUPPLEMENT MEDICARE PART A & B [place] [employer] MEDEX SUPPLEMENT MEDICARE PART A & B [employer] MEDEX SUPPLEMENT MEDICARE PART A & B [employer] MEDEX SUPPLEMENT MEDICARE PART A & B [employer] MEDEX SUPPLEMENT MEDICARE PART A & B [employer] MEDEX SUPPLEMENT Care Teams Aging Room Operator Relationship Specialty Start Date End Date Pcp, Unknown PCP - General 01/17/24 Additional Source Comments The information contained in this document represents components of the legal health record. It is not the complete legal health record.[facility]
== END 2025-07-14 13:47 | disposition home or self-care (01) ==
LOC: HO.WFDLDS 13:46
PROVIDERS: Visit Provider Internal Medicine
DX: D64.9 Anemia, unspecified (principal)
CPT/HCPCS: 36415; 82607; 82746; 83540